=== PATIENT | female | born 1990 | race Caucasian/White ===

== ENCOUNTER 2018-02-12 20:24 | Emergency (ER) | payer OTHER ==
[~2018-02-12] VITALS: Ht 165.1 cm; Wt 118.2 kg
[~2018-02-12 20:24] MED LIST: DESYREL 100MG100 MG PO; DIAMOX 250MG250 MG PO; EC-NAPROSYN500 MG PO; LEVAQUIN 2250 MG/TAB PO; MAG-OX 400400 MG/TAB PO; MAXALT MLT5 MG PO; NATURE'S BLEND M3 MG PO; NATURE'S BLEND100 M1 PO; PERIACTIN 4MG TA4 MG PO; PRENATAL1 TA1 PO; PRISTIQ100 MG PO; TYLENOL 325MG325 MG PO; ZOFRAN 4MG T4 MG/TAB PO
[2018-02-12] MEDS ORDERED: SYNTHROID0.2 MG/TAB PO (20:40)
[2018-02-12] MEDS ORDERED: LEVOXYL0.025 MG PO (20:40)
[2018-02-12] MEDS ORDERED: NORCO 325 MG-51 TAB PO (20:41)
[2018-02-12] MEDS ORDERED: CLEOCIN HC150 MG/CAP PO (21:07)
[2018-02-12] MEDS ORDERED: EPIPEN 2-PAK1 MG/ML IM (21:22)
[2018-02-12 23:15] VITALS: BP 120/81; PULSE 74
== END 2018-02-12 23:29 | disposition home or self-care (01) ==
LOC: COL.ER 20:24
DX: T78.05XA Anaphylactic reaction due to tree nuts and seeds, initial encounter (principal); K08.89 Other specified disorders of teeth and supporting structures; Z98.818 Other dental procedure status
CPT/HCPCS: J0171; J1200; J2930; J7030

== ENCOUNTER 2018-04-27 13:59 | Emergency (ER) | payer OTHER ==
[~2018-04-27] VITALS: Ht 167.6 cm; Wt 118.2 kg
[~2018-04-27 13:59] MED LIST changes: +CLEOCIN HC150 MG/CAP PO; +EPIPEN 2-PAK1 MG/ML IM; +LEVOXYL0.025 MG PO; +NORCO 325 MG-51 TAB PO; +SYNTHROID0.2 MG/TAB PO
[2018-04-27] MEDS ORDERED: ADVIL200 MG PO (14:55)
[2018-04-27] MEDS ORDERED: DIAMOX SEQUELS500 M1 PO (17:31)
[2018-04-27 17:46] VITALS: BP 116/74; PULSE 75; TEMP 98
== END 2018-04-27 17:47 | disposition home or self-care (01) ==
LOC: COL.ER 13:59
DX: G93.2 Benign intracranial hypertension (principal); R51 Headache
CPT/HCPCS: J1200; J1885; J2550; J7030

== ENCOUNTER 2018-04-28 16:23 | Emergency (ER) | payer OTHER ==
[~2018-04-28] VITALS: Ht 167.6 cm; Wt 119.1 kg
[~2018-04-28 16:23] MED LIST changes: +ADVIL200 MG PO; +DIAMOX SEQUELS500 M1 PO
[2018-04-28 16:28] VITALS: BP 125/78
[2018-04-28 19:31] VITALS: PULSE 74; TEMP 98
== END 2018-04-28 19:30 | disposition home or self-care (01) ==
LOC: COL.ER 16:23
DX: G97.1 Other reaction to spinal and lumbar puncture (principal)
CPT/HCPCS: J1170; J1630; J1885; J2405; J3010; J7030; J7120

== ENCOUNTER 2018-04-30 14:42 | Emergency (ER) | payer OTHER ==
[~2018-04-30] VITALS: Ht 165.1 cm; Wt 118.2 kg
[2018-04-30 14:45] VITALS: TEMP 98.8
[2018-04-30] MEDS ORDERED: ULTRAM 50MG TAB50 MG PO (15:59)
[2018-04-30 17:24] VITALS: BP 121/68; PULSE 83
[2018-04-30] MEDS ORDERED: COMPAZINE 110 MG/TAB PO (17:30)
== END 2018-04-30 17:25 | disposition home or self-care (01) ==
LOC: COL.ER 14:42
DX: G93.2 Benign intracranial hypertension (principal); E03.9 Hypothyroidism, unspecified; E66.9 Obesity, unspecified; F17.210 Nicotine dependence, cigarettes, uncomplicated; Z88.2 Allergy status to sulfonamides; Z88.0 Allergy status to penicillin
CPT/HCPCS: J0780; J1200; J7030